=== PATIENT | male | born 1950 ===

== ENCOUNTER 2023-04-14 13:42 | Emergency (ER) | payer MEDICARE, OTHER ==
[~2023-04-14] VITALS: Ht 175.3 cm; Wt 70.9 kg
[2023-04-14 13:45] VITALS: TEMP 98.2
[2023-04-14] MEDS ORDERED: CHL25 PO (13:51)
[2023-04-14] MEDS ORDERED: FAMO20 PO (13:51)
[2023-04-14] MEDS ORDERED: MIRT-149 PO (13:51)
[2023-04-14] MEDS ORDERED: SOFO1TAB2 PO (13:51)
[2023-04-14] MEDS ORDERED: MELO-381 PO (13:51)
[2023-04-14] MEDS ORDERED: QUET300T2 PO (13:51)
[2023-04-14] MEDS ORDERED: HYDROCODONE/ACETAMINOPHEN 5-325 MG TABLET PO ONE (15:00)
[2023-04-14 16:32] VITALS: BP 136/87; PULSE 84; RESP 16
[2023-04-14] MEDS ORDERED: TRAM-559 PO (16:51)
== END 2023-04-14 17:13 | disposition home or self-care (01) ==
LOC: EMS 13:55
DX: S70.11XA Contusion of right thigh, initial encounter (principal); M25.551 Pain in right hip; M19.90 Unspecified osteoarthritis, unspecified site; I10 Essential (primary) hypertension; F17.210 Nicotine dependence, cigarettes, uncomplicated; F10.90 Alcohol use, unspecified, uncomplicated; Z88.0 Allergy status to penicillin; W10.8XXA Fall (on) (from) other stairs and steps, initial encounter; Y93.89 Activity, other specified; Y92.89 Other specified places as the place of occurrence of the external cause; Y99.8 Other external cause status
CPT/HCPCS: 99284; 72192-99; Z7502; Z7610